=== PATIENT | female | born 1990 | race American Indian/Alaskan Native ===

== ENCOUNTER 2017-05-19 09:09 | Emergency (ER) | payer SELFPAY ==
[2017-05-19 09:28] VITALS: BP 112/74
--- NOTE | 2017-05-19 11:31 | Emergency Department Report ---
HPI - General Chief Complaint: Allergic Reaction Time Seen by Provider: 05/19/17 10:58 - HPI HPI: Patient here reported that she has allergic reaction to something that started on Saturday and she said the only thing that she was thinking is that she knew air gel in her ear. And her sister noted on her back neck and now it's all over her back and arms and her chest area. Patient said he got better when she took a Benadryl but now it's worse and itching. She denies any difficulty breathing, difficulty swallowing, shortness of breath, chest pain, nausea or vomiting, fever chills, stridor, cough or wheezing. Denies swelling of her tongue. Last menstrual period was 05/06/2017. Denies any pain. ED Past Medical Hx - Past Medical History Previous Medical History?: Yes Hx Hypertension: Yes (only during ) Hx Congestive Heart Failure: No Hx Diabetes: No Hx Deep Vein Thrombosis: No Hx Renal Disease: No Hx Sickle Cell Disease: No Hx Seizures: No Hx Asthma: No Hx COPD: No Hx HIV: No - Surgical History Past Surgical History?: No - Family History Family history: hypertension - Social History Smoking Status: Never Smoker Substance Use Type: None Other Social History: single - Medications Home Medications: Home Medications Medication Instructions Recorded Confirmed Last Taken Type Phenazopyridine HCl [Pyridium] 200 mg PO BID #6 tablet 01/15/15 Unknown Rx Ciprofloxacin HCl [Ciprofloxacin 500 mg PO Q12H #20 tab 07/02/16 Unknown Rx TAB] Ibuprofen [Motrin] 800 mg PO Q8HR PRN #20 tablet 07/02/16 Unknown Rx Famotidine [Pepcid] 40 mg PO QAM #5 tablet 05/19/17 Unknown Rx hydrOXYzine HCL [Atarax] 25 mg PO Q6HR PRN #12 oral.liqd 05/19/17 Unknown Rx methylPREDNISolone [Medrol] 4 mg PO QAM #1 tab.ds.pk 05/19/17 Unknown Rx ED Review of Systems ROS: Stated complaint: ALLERGIC REACTION Other details as noted in HPI Comment: All other systems reviewed and negative Constitutional: no symptoms reported ENT: denies: ear pain, throat pain, congestion Respiratory: no symptoms reported Cardiovascular: denies: chest pain, palpitations, edema, syncope Gastrointestinal: denies: abdominal pain, nausea, vomiting Musculoskeletal: denies: back pain, arthralgia, myalgia Skin: rash, pruritus Neurological: denies: headache, abnormal gait, vertigo Physical Exam - Physical Exam Vital Signs: Vital Signs 05/19/17 09:15 Temperature 98.8 F Pulse Rate 86 Respiratory 16 Rate Blood Pressure 112/74 O2 Sat by Pulse 100 Oximetry General: 27-year-old female well-nourished well-developed in no acute distress. Physical Exam: Head: Normocephalic, atraumatic, no abrasion, no bruising and no contusion. Eyes: Biateral pupils equal and reactive to light, bilateral EOM intact.. Bilateral conjunctival and sclera without injection, normal accommodation. Bilateral lids are normal except below bilateral lids with mild swelling and puffiness. Nose: Moist, no erythema or congestion. No Maxillary or frontal sinus tenderness Mouth: Moist, no pharyngeal exudate or erythema. Tongue is normal Uvula is midline and oral airways patent. Neck: Supple, Positive Cervical adenopathy, full range of motion and no C-spine tenderness. No swelling or tracheal deviation Cardiovascular: S1, S2. Regular rate and rhythm. No murmur. Capillary refill is less then 3 seconds. Lungs: Clear to auscultate bilaterally. No rhonchi, wheezes or rales. No chest wall tenderness Extremities: No clubbing, cyanosis or edema. +2 pulses. No neurovascular compromise Skin: Clean, dry . Noted urticarial rash to anterior and posterior torso, bilateral upper extremity and posterior neck. Mild swelling with erythema and slightly raised. Nontender to palpate. Psych: Normal mood and behavior. ED Course Vital Signs 05/19/17 09:15 Temperature 98.8 F Pulse Rate 86 Respiratory 16 Rate Blood Pressure 112/74 O2 Sat by Pulse 100 Oximetry - Reevaluation(s) Reevaluation #1: 05/19/17 13:07 Patient given Solu-Medrol 125 mg IV, Pepcid 20 mg IV and Benadryl 50 mg IV and upon reevaluation rash has subsided and now limited to upper extremity but redness and swelling has decreased. ED Medical Decision Making - Medical Decision Making ED course: Patient with urticarial rash from allergic reaction, source unknown patient thinks it's from care gel that she was using. Physical findings for urticarial rash to anterior and posterior torso, posterior neck and upper extremities. Patient had no respiratory symptoms and lungs are clear with no angioedema. Patient was given Solu-Medrol 125 mg IV, Benadryl 50 mg IV and Pepcid 20 mg IV and upon reevaluation rashes subsided and, erythema has diminished and swelling has diminished. Patient stable in no acute distress is that she feels better. Patient discharged home with her family. I discussed with her if she has return of symptoms to include difficulty breathing, swelling of tongue, difficulty swallowing, coughing, stridor or wheezing to return to [facility] otherwise follow up with her primary care physician in one to 2 days. Notices an treatment plan explained to patient and she voiced understanding discharged home with prescription for Medrol Dosepak, Pepcid and Atarax. Critical care attestation.: If time is entered above; I have spent that time in minutes in the direct care of this critically ill patient, excluding procedure time. ED Disposition Clinical Impression: Urticaria of unknown origin, Pruritus and related conditions Disposition: TO HOME OR SELFCARE Is pt being admited?: No Does the pt Need Aspirin: No Condition: Stable Instructions: Urticaria (ED), Itchy Skin (ED) Additional Instructions: Please keep affected areas clean and dry Do not take Atarax while driving or operating heavy machinery as this medication can cause drowsiness Return hospital if you develop signs of difficulty breathing, difficulty swallowing, chest pain, shortness of breath, stridor, wheezing, cough and/or increase in rash otherwise follow-up with the primary care physician in one to 2 days and if he do not have a primary care physician he can follow up at [facility]. Prescriptions: Famotidine [Pepcid] 40 mg PO QAM #5 tablet hydrOXYzine HCL [Atarax] 25 mg PO Q6HR PRN #12 oral.liqd PRN Reason: Allergic Reaction methylPREDNISolone [Medrol] 4 mg PO QAM #1 tab.ds.pk Referrals: PRIMARY CARE,MD [Primary Care Provider] - 24 Hours [facility] [Outside] - 24 Hours Forms: Accompanied Note, Work/School Release Form(ED)
[2017-05-19] MEDS ORDERED: PEPCID IV ONE (11:32)
[2017-05-19] MEDS ORDERED: BENADRYL IV ONE (11:32)
== END 2017-05-19 13:42 | disposition home or self-care (01) ==
LOC: ED 09:09
DX: L50.9 Urticaria, unspecified (principal)
CPT/HCPCS: 96374; 96375; 99282; J1200; J2930

== ENCOUNTER 2020-07-18 03:40 | Outpatient (CLI) | payer MEDICAID ==
[2020-07-18 04:03] VITALS: BP 114/78
[2020-07-18 04:50] LABS: Bacteria,Urine 3+ /HPF (Negative); Bilirubin,Urine NEG (Negative); Blood,Urine NEG (Negative); Color,Urine Yellow (Yellow); Mucus,Urine FEW /HPF; Protein,Urine <15 mg/dL mg/dL (Negative); Sperm,Urine FEW /HPF (NP); Urobilinogen,Urine < 2.0 mg/dL (<2.0)
--- NOTE | 2020-07-18 05:45 | Ultrasound Report ---
US OB limited INDICATION / CLINICAL INFORMATION: leaking fluid. COMPARISON: None available. FINDINGS: lie is cephalic. heart rate is 161. Amniotic fluid index is 6 cm. IMPRESSION: 1. RAD is low at 6 cm. Signer Name: Waldo Gallagher MD Signed: 07/18/2020 5:41 AM Workstation Name: [id number]
== END 2020-07-18 06:55 | disposition home or self-care (01) ==
LOC: TRG 03:40 → APU 03:44 → TRG 06:55
PROVIDERS: ATTEND Obstetrics & Gynecology
DX: O62.9 Abnormality of forces of labor, unspecified (principal); O42.913 Preterm premature rupture of membranes, unspecified as to length of time between rupture and onset of labor, third trimester; Z3A.36 36 weeks gestation of pregnancy
CPT/HCPCS: 59025; 76815; 81001; 87086; 96360